=== PATIENT | male | born 1975 | race Caucasian/White ===

== ENCOUNTER 2016-09-05 17:24 | Emergency (ER) | payer MEDICAID ==
[~2016-09-05] VITALS: Ht 167.6 cm; Wt 120.0 kg
[2016-09-05] MEDS ORDERED: METO25 PO (17:52)
[2016-09-05] MEDS ORDERED: SIMV-259 PO (17:52)
[2016-09-05] MEDS ORDERED: HYDR25TA PO (17:52)
[2016-09-05] MEDS ORDERED: LISI-662 PO (17:52)
[2016-09-05 19:30] VITALS: BP 144/78
== END 2016-09-05 20:36 | disposition short-term general hospital (02) ==
LOC: EMS 17:26
DX: S02.31XA Fracture of orbital floor, right side, initial encounter for closed fracture (principal); F10.129 Alcohol abuse with intoxication, unspecified; I10 Essential (primary) hypertension; E78.00 Pure hypercholesterolemia, unspecified; W50.0XXA Accidental hit or strike by another person, initial encounter; Y93.89 Activity, other specified; Y92.9 Unspecified place or not applicable; Y99.9 Unspecified external cause status
CPT/HCPCS: 36415; 70450; 70486; 72125; 99291; G0480